=== PATIENT | female | born 1965 | race Caucasian/White ===

== ENCOUNTER 2020-02-24 13:55 | Emergency (ER) | payer SELFPAY ==
[2020-02-24 14:12] VITALS: BP 158/87; PULSE 77; RESP 16; TEMP 36.3; O2SAT 100
--- NOTE | 2020-02-24 14:15 | ED.SKABFB ---
HPI - Skin/Abscess/Foreign Bdy General Chief complaint: Skin/Abscess/Foreign Body Stated complaint: possible insect bite Time Seen by Provider: 02/24/20 14:18 Source: patient and RN notes reviewed Mode of arrival: ambulatory Limitations: no limitations History of Present Illness HPI narrative: This is a 54 years old female presents to the office for an evaluation of possible skin infection of right arm. She thinks she got a bug bite yesterday. She has been scratching all night last night and then woke up this morning with her right elbow swollen. She also noticed redness, warmth and a little pain with elbow bending. She tried otc hydrocortisone cream. TD is up to date. Related Data Allergies Allergy/AdvReac Type Severity Reaction Status Date / Time No Known Allergies Allergy Verified 02/24/20 14:19 Review of Systems Review of Systems: Narrative: CONSTITUTIONAL: Denies fever or feeling ill CARDIOVASCULAR: Denies chest pain RESPIRATORY: Denies dyspnea GASTROINTESTINAL: Denies abdominal pain, nausea, vomiting SKIN: Reports right elbow swollen, red, warmth to touch MUSCULOSKELETAL: Reports a little elbow pain NEUROLOGIC: Denies lightheaded/numbness or focal weakness All other systems reviewed are negative, except as documented in HPI. COUNTS INCLUDE 234 BEDS AT THE [facility] Past Medical History Medical History Acid reflux DVT (deep venous thrombosis) right leg Surgical History Surgical History Hx of hysterectomy with oophorectomy Hx of tonsillectomy 1997 Social History Social History Smoking status: Current every day smoker Comments At time of signature, I agree with nursing past medical, surgical, social and family history. There is no relevant family history pertinent to the presenting complaint. Exam Narrative: Exam Narrative: GENERAL: This is a well-nourished, well-developed patient, in no apparent distress. CARDIOVASCULAR: Regular rate and rhythm without murmurs, gallops, or rubs. RESPIRATORY: Clear to auscultation. Breath sounds equal bilaterally. No wheezes, rales, or rhonchi. GASTROINTESTINAL: Abdomen soft, non-tender, nondistended. Bowel sounds are active. No hepato-splenomegaly, or palpable masses. No guarding. SKIN: Right elbow noted black nodule with underling generalize edematous, erythema, warmth to palpation and clear demarcation without lymphadenitis. NEURO: awake, alert, and oriented to person, place and time. There were no obvious focal neurologic abnormalities. Steady gait EXTREMITIES: Normal range of motion. Radial pulse intact. BACK: Nontender without deformity or crepitance. No flank tenderness. Haris Coma Scale Eye Opening: Spontaneous 4 Haris Coma Scale Motor: Obeys Commands 6 Haris Coma Scale Verbal: Oriented 5 MDM - Skin/Abscess/Foreign Bdy MDM Narrative Medical decision making narrative: Discharge instructions reviewed with patient, as well as provided in writing per nursing staff. The instructions also include specific and strict return/GO TO THE ER as well as f/u information. All questions have been answered, and the patient deny any further questions with discharge and discharge plan. Differential Diagnosis Differential diagnosis: Likely abscess of skin or subcutaneous tissue, urticaria, allergic reaction to drug, cellulitis, eczema, insect bites, impetigo and contact dermatitis Critical Care Time Critical Care Time Critical Care Time: No Discharge Plan Discharge Clinical Impression: Infected bite wound Insect bites Qualifiers: Encounter type: initial encounter Site of insect bite: elbow Laterality: right Qualified Code(s): S50.361A - Insect bite (nonvenomous) of right elbow, initial encounter Patient Disposition: Home, Self-Care Condition: Stable Instructions: Antibiotic Form, Insect Bite or Sting (ED) Additional Inst
[2020-02-24] MEDS: methylPREDNISolone ACETATE 80 MG/ML VIAL IM (14:33)
== END 2020-02-24 14:48 | disposition home or self-care (01) ==
PROVIDERS: Emergency Provider Nurse Practitioner
DX: S50.361A Insect bite (nonvenomous) of right elbow, initial encounter (principal); W57.XXXA Bitten or stung by nonvenomous insect and other nonvenomous arthropods, initial encounter
CPT/HCPCS: 96372; 99213; G0463; J1040